=== PATIENT | female | born 1960 | race African-American/Black ===

== ENCOUNTER 2017-02-06 22:50 | Emergency (ER) | payer MEDICAID ==
[~2017-02-06] VITALS: Ht 165.1 cm; Wt 82.0 kg
[2017-02-07 02:23] LABS: CHLORIDE 108 mEq/L (98-107)
[2017-02-07 02:31] LABS: BASOPHILS % 0.9 % (0.0-2.0); CARBON DIOXIDE 28 mEq/L (21-32); EOSINOPHILS % 2.4 % (0.0-5.0); HEMATOCRIT. 38.3 % (36.0-48.0); HEMOGLOBIN. 12.8 g/dL (12.0-16.0); LYMPHOCYTES % 41.6 % (20.0-50.0); MEAN CORPUSCULAR HEMOGLOBIN 29.1 pg (28.0-32.0); MEAN PLATELET VOLUME 8.3 fl (7.4-10.4); MONOCYTES % 7.9 % (2.0-8.0); NEUTROPHILS % 47.2 % (40.0-76.0); PLATELET 168 x1000/uL (130-400); RED BLOOD CELL COUNT 4.41 mill/uL (4.2-5.4); RED CELL DISTRIBUTION WIDTH 13.7 % (11.6-14.6)
[2017-02-07 02:38] LABS: PROTHROMBIN TIME 10.5 sec (9.4-11.6)
[2017-02-07 02:42] VITALS: BP 150/90
== END 2017-02-07 04:32 | disposition home or self-care (01) ==
LOC: ER 22:50
DX: K57.91 Diverticulosis of intestine, part unspecified, without perforation or abscess with bleeding (principal); K42.9 Umbilical hernia without obstruction or gangrene; D25.9 Leiomyoma of uterus, unspecified; K76.89 Other specified diseases of liver; K56.41 Fecal impaction; I10 Essential (primary) hypertension
CPT/HCPCS: 36415; 74176; 80053; 83605; 83690; 85025; 85610; 86850; 86900; 86901; 99285; Z7610